=== PATIENT | male | born 1995 | race Two or more races ===

== ENCOUNTER 2017-08-20 20:10 | Emergency (ER) | payer OTHER ==
[2017-08-20 20:24] VITALS: RESP 18; TEMP 98.6; O2SAT 97
--- NOTE | 2017-08-20 20:34 | EDPHY ---
H & P Stated Complaint: NAIL GUN NAIL TO L THUMB,,,PULLED OUT, WORK RELATED Source: Patient Exam Limitations: No limitations - Personal History Current Tetanus/Diphtheria Vaccine: Yes - Medical/Surgical History Hx Asthma: No Hx Chronic Respiratory Disease: No Hx Diabetes: No Hx Cardiac Disease: No Hx Renal Disease: No Hx Cirrhosis: No Hx Alcoholism: No Hx HIV/AIDS: No Hx Splenectomy or Spleen Trauma: No Other PMH: denies - Social History Smoking Status: Never smoked Time Seen by Provider: 08/20/17 20:28 HPI/ROS: HPI: This is a 21-year-old male presents with Chief Complaint: NAIL GUN NAIL TO L THUMB,PULLED OUT, WORK RELATED Location: Left thumb Quality: Injury Duration: 3 hr prior to arrival Signs and Symptoms: No bleeding, no radiation, no numbness, no weakness, no tingling, no incontinence, no decreased range of motion, + swelling, + pain Timing: Sudden Severity: [id number] Context: Patient was at work when he accidentally put a nail through the base of his left thumb while using the nail gun. He immediately pulled the nail out and reports that was intact. He reports that he felt moderate pain initially and only mild pain now, that worsens with flexion and extension. He denies any redness/warmth/paresthesias. He went home from work and wash with soap and water and then implied hydrogen peroxide to the wound site. Right-hand dominant. Tetanus up-to-date. Modifying Factors: See above Comment: ROS: see HPI Constitutional: No fever, no chills, no weight loss Eyes: No blurred vision Respiratory: No shortness of breath, no cough Cardiovascular: No chest pain Gastrointestinal: No nausea, no vomiting no diarrhea Genitourinary: No dysuria Extremities: No myalgias Neurologic: No weakness, no numbness Skin: No rashes Hematologic: No bruising, no bleeding MEDICAL/SURGICAL/SOCIAL HISTORY: Medical history: Generally healthy. Does not take any regular medications. Surgical history: Denies Social history: Employed in construction. CONSTITUTIONAL: Teenage male, polite and cooperative, awake and alert , no obvious distress HEENT: Atraumatic and normocephalic, PERRL, EOMI. Tympanic membranes clear. Oropharynx clear, no exudate and moist pink mucosa. Airway patent. No lymphadenopathy. No meningismus. Cardiovascular: Normal S1/S2, regular rate, regular rhythm, without murmur rub or gallop. PULMONARY/CHEST: Symmetrical and nontender. Clear to auscultation bilaterally. Good air movement. No accessory muscle usage. ABDOMEN: Soft, nondistended, nontender, no rebound, no guarding, no peritoneal signs, no masses or organomegaly. No CVAT. EXTREMITIES: 2/2 radial pulses, strength 5/5, inferior to the MCP joint of the left thumb shows site of nail gun penetration approximately 1 mm inside; MCP/DIP /PIP flexion, extension, good light touch sensation intact. no deformities, no clubbing, no cyanosis or edema. NEUROLOGICAL: no focal neuro deficits. GCS 15. SKIN: Warm and dry, no erythema. no rash. Good capillary refill. (Zayda Ennis) Constitutional: Initial Vital Signs Temperature (C) 37.0 C 08/20/17 20:22 Heart Rate 76 08/20/17 20:22 Respiratory Rate 18 08/20/17 20:22 Blood Pressure 108/66 08/20/17 20:22 O2 Sat (%) 97 08/20/17 20:22 O2 Delivery Mode Room Air Allergies/Adverse Reactions: No Known Allergies Allergy (Verified 08/20/17 20:24) Home Medications: Medication Instructions Recorded Advil Unk 03/28/13 Cephalexin [Keflex (*)] 500 mg PO QID #28 cap 08/20/17 Medical Decision Making - Diagnostics Imaging Results: Imaging Impressions Hand X-Ray 08/20/17 20:37 Impression: 1. No definite acute fracture. 2. No definite radiopaque foreign bodies. Procedures: Procedure: Splint placement. A left thumb spica Velcro splint was applied by Emergency Room electric meter technician. After application of the splint I returned and re-examined the patient. The splint was adequately immobilizing the joint and distal to the splint the patient's circulation and sensation was intact. (Zayda Ennis) ED Course/Re-evaluation: The patient was evaluated and managed by the physician's horticultural nursery assistant. My cosignature indicates that I reviewed the chart and I agree with the findings and plan of care as documented. I am the secondary supervising physician. ( Kassidy Craig) Left hand x-ray and IV medications ordered Tetanus up-to-date Wound cleaned with Betadine and normal saline and copiously irrigated. Given 1 g Ancef No signs of neurovascular compromise/tenting of skin/compartment syndrome/ extremities and joints examined above and below area of concern and are neurovascularly intact/tendon injury/foreign body/tenosynovitis/cellulitis. X-ray my read shows no signs of fracture/foreign body/dislocation Placed in left thumb spica Velcro splint to immobilize; Keflex 500 mg 4 times a day x7 days; wound check in 48 hr in the ER This patient was seen under the supervision of my secondary supervising physician. I evaluated care for this patient independently. Discussed this patient with Dr. Craig who did not see the patient. Patient's presentation, labs/imaging, treatment and plan of care were discussed with secondary supervising physician. (Zayda Ennis) Differential Diagnosis: Differential diagnosis includes but is not limited to phalanx fracture, nerve injury, tendon injury, foreign body. (Zayda Ennis) - Data Points Medications Given: Discontinued Medications Cefazolin Sodium/Dextrose (Ancef 1 Gm (Premix)) 50 mls @ 200 mls/hr IV EDNOW ONE PRN Reason: Protocol Stop: 08/20/17 20:51 Last Admin: 08/20/17 20:52 Dose: 50 mls Departure - Departure Disposition: Home, Routine, Self-Care Clinical Impression: Injury of left thumb by nail gun Qualifiers: Encounter type: initial encounter Qualified Code(s): S69.92XA - Unspecified injury of left wrist, hand and finger(s), initial encounter; W29.4XXA - Contact with nail gun, initial encounter; W29.4XXA - Contact with nail gun, initial encounter Condition: Good Instructions: Cellulitis (ED), Tenosynovitis (ED) Additional Instructions: Keep left thumb dry and splint in place for 48-72 hours. Take Tylenol 650 mg every 4 hours and/or Ibuprofen 600 mg every 8 hours with food as needed for pain. Take Keflex 500 mg 4 times a day until complete. Apply ice for 30 minutes at a time; 2-3 times per day for the next 1-2 days. Please return to the emergency room for re-evaluation if any signs of redness/ warmth/fever/decreased range of motion. Wound check in this emergency room on Thursday. The x-rays obtained in the emergency department today demonstrate no evidence of an obvious fracture. Referrals: Prakash Wallace MD [Medical Doctor] - As per Instructions Prescriptions: Cephalexin [Keflex (*)] 500 mg PO QID #28 cap
[2017-08-20 21:44] VITALS: BP 123/67; PULSE 74
== END 2017-08-20 21:44 | disposition home or self-care (01) ==
DX: S69.92XA Unspecified injury of left wrist, hand and finger(s), initial encounter (principal); W29.4XXA Contact with nail gun, initial encounter; Y92.69 Other specified industrial and construction area as the place of occurrence of the external cause; Y99.0 Civilian activity done for income or pay; Y93.89 Activity, other specified
CPT/HCPCS: 96374; J0690; L3807